=== PATIENT | female | born 1965 | race Caucasian/White ===

== ENCOUNTER 2017-02-23 19:21 | Emergency (ER) | payer OTHER ==
--- NOTE | 2017-02-23 19:23 | EDPHY ---
H & P HPI/ROS: CHIEF COMPLAINT: Back pain secondary to a fall HISTORY OF PRESENT ILLNESS: The patient is a 51 y/o female arriving via EMS, complaining of back pain after she fell at work. While at work for [employer], she stepped off of the bus and miscalculated how high up the bus was, leading to her falling on her front and side. She is currently having medial and lateral lower back pain. She was able to ambulate after the fall, but there was pain. While en route to the hospital she was given Fentanyl for her pain. Denies urinary complaints, numbness or tingling in her legs, weakness in her legs or other pertinent symptoms. REVIEW OF SYSTEMS: A ten point review of systems was performed and is negative with the exception of the items mentioned in the HPI. Past medical history: Hypothyroid Shingles in 2015 Past surgical history: Denies Family history: Noncontributory Social history: Lives in [place] Works for [employer] Smoker General Appearance: Alert. Vital signs reviewed. Eyes: Pupils equal and round, no conjunctival injection, no discharge. Anicteric. ENT, Mouth: Mucous membranes are moist, no oropharyngeal erythema or edema. Neck: No lymphadenopathy, supple. Respiratory: Lungs are clear to auscultation; no wheezes, rales, or rhonchi. Cardiovascular: Regular rate and rhythm; no murmur, rub, or gallop. Gastrointestinal: Abdomen is soft and nontender, no masses or organomegaly, bowel sounds normal. Skin: Warm and dry, no rashes on exposed skin, normal color. Back: Tender to palpation over the upper lumbar spine in the midline and also in the paraspinous lumbar muscles bilaterally. No CVAT. Extremities: No lower extremity edema, no calf tenderness or swelling. Neurological: Alert and oriented. Strength is 5 over 5 bilaterally with testing of all major motor groups both lower extremities. Sensation is intact to light touch over both lower extremities. Deep tendon reflexes are 1+ in the knees bilaterally. Psychiatric: Normal affect. Constitutional: Initial Vital Signs Temperature (C) 36.4 C 02/23/17 19:25 Heart Rate 75 02/23/17 19:25 Respiratory Rate 18 02/23/17 19:25 Blood Pressure 106/63 02/23/17 19:25 O2 Sat (%) 92 02/23/17 19:25 O2 Delivery Mode Room Air O2 (L/minute) 2 Allergies/Adverse Reactions: Tetracyclines Allergy (Verified 02/23/17 19:44) Home Medications: Medication Instructions Recorded Acyclovir [Acyclovir 500 MG VIAL 5 mg IV Q8 02/23/17 (*)] Cyclobenzaprine [Flexeril 10 MG 10 mg PO TID PRN #15 tab 02/23/17 (*)] Gabapentin [Gralise] 1,800 mg PO DAILY 02/23/17 Lidocaine 5% [Lidoderm 5% Patch 1 ea TD DAILY #6 patch 02/23/17 (*)] Medical Decision Making - Diagnostics Imaging: I viewed and interpreted images myself ED Course/Re-evaluation: The patient is a 51 y/o female who presents with midline and bilateral lumbar spine tenderness secondary to a mechanical fall at work earlier today. 2039: Lumbar x-ray is negative for osseous injury. There are signs of degenerative changes. No fracture or dislocation noted. In the emergency department she received Toradol 15 mg IV and lidocaine 5% patch was placed. 2041: Reassessed patient and discussed negative imaging results. She has a normal neurologic exam. I do not feel that further imaging is needed at this time. She requested an MRI scan and I explained that this study was not warranted in this setting. We discussed the indications for emergent MRI scan of the spine. She will be following up with workman's compensation. She will be discharged with a Lidocaine patch, Bergholz prescription, and Flexeril prescription. Return precautions provided; patient is comfortable with this plan. Differential Diagnosis: Back pain including but not limited to muscular pain, herniated disc, spine fracture, intra-abdominal causes and urinary tract infection. - Data Points Medications Given: Discontinued Medications Hydrocodone Bitart/Acetaminophen (Bergholz 5/325mg Prepack#6) 1 btl TAKEHOME EDNOW ONE Stop: 02/23/17 20:49 Last Admin: 02/23/17 21:20 Dose: 1 btl Ketorolac Tromethamine (Toradol) 15 mg IVP EDNOW ONE Stop: 02/23/17 19:39 Last Admin: 02/23/17 19:47 Dose: 15 mg Lidocaine (Lidoderm 5%) 1 ea TD EDNOW ONE Stop: 02/23/17 20:48 Last Admin: 02/23/17 21:20 Dose: 1 ea Miscellaneous Information (Patch Removal) 1 ea TD DAILY21 JAYA Stop: 08/22/17 20:59 Last Admin: 02/23/17 21:20 Dose: 1 ea Ondansetron HCl (Zofran) 4 mg IVP EDNOW ONE Stop: 02/23/17 19:39 Last Admin: 02/23/17 19:47 Dose: 4 mg Departure - Departure Disposition: Home, Routine, Self-Care Clinical Impression: Lumbar back pain Condition: Good Instructions: Hydrocodone/Acetaminophen (By mouth), Acute Low Back Pain (ED), Back Pain (ED) Additional Instructions: 1. Adult Pain Control: We recommend Acetaminophen (Tylenol) and Ibuprofen (Motrin,Advil) for pain. When in severe pain, both drugs can be used at the same time, but at different intervals. Please note the time differences. Your dose is: Acetaminophen [650]mg every 4 to 6 hours Ibuprofen [400]mg every [4-6] hours with food Note: do not take Acetaminophen with Hydrocodone (Vicodin, Lortab) or Oycodone (Percocet). These medications also contain Acetaminophen. No more than 3000mg of Acetaminophen should be taken in 24 hours (for an adult). 2. Use the Lidocaine patch and Flexeril as prescribed. 3. Followup with a strategic planning specialist or your primary care provider within one week. 4. Return to the emergency department for severe pain, fever, numbness, difficulty walking, change in location or nature of pain or other concerns. Referrals: Work Comp Referral [facility] [Outside] - As per Instructions Prescriptions: Cyclobenzaprine [Flexeril 10 MG (*)] 10 mg PO TID PRN #15 tab PRN Reason: Spasms Lidocaine 5% [Lidoderm 5% Patch (*)] 1 ea TD DAILY #6 patch Report Scribed for: Leanna Adan Report Scribed by: Mona Aly Date of Report: 02/23/17 Time of Report: 19:25 Physician Review and Approval Statement: 02/23/17 19:23 Portions of this note were transcribed by the manager of medical. I, Dr. Leanna Adan, personally performed the history, physical exam, and medical decision- making; and confirmed the accuracy of the information in the transcribed note.
[2017-02-23] MEDS ORDERED: ONDANSETRON 4 MG/2 ML VIAL IVP ONE (19:38)
[2017-02-23] MEDS ORDERED: KETOROLAC 15 MG/1 ML SDV IVP ONE (19:38)
[2017-02-23 19:41] VITALS: TEMP 97.5
[2017-02-23 19:52] VITALS: O2SAT 96
[2017-02-23] MEDS ORDERED: LIDOCAINE 5% 1 EA PATCH TD ONE (20:47)
[2017-02-23] MEDS ORDERED: HYDROCOD/APAP 5/325 PREPACK#6 BTL TAKEHOME ONE (20:48)
[2017-02-23] MEDS ORDERED: PATCH REMOVAL 1 EA PATCH TD SCH (21:00)
[2017-02-23 21:29] VITALS: BP 101/62; PULSE 77; RESP 16
== END 2017-02-23 21:28 | disposition home or self-care (01) ==
LOC: EDUNIT#
DX: S39.92XA Unspecified injury of lower back, initial encounter (principal); W18.39XA Other fall on same level, initial encounter; Y92.69 Other specified industrial and construction area as the place of occurrence of the external cause; Y99.0 Civilian activity done for income or pay; Y93.89 Activity, other specified
CPT/HCPCS: 96374; J1885; J2405